=== PATIENT | male | born 1975 | race Caucasian/White ===

== ENCOUNTER → 2021-12-07 | Outpatient (CLI) | payer OTHER | LOC: M PLAIMG 10:37 | PROVIDERS: ATTEND Physician Assistant | DX: M47.25 Other spondylosis with radiculopathy, thoracolumbar region (principal) ==

== ENCOUNTER → 2022-03-29 | Outpatient (REF) | LOC: M PLAIMG 09:33 | PROVIDERS: ATTEND Internal Medicine | DX: R06.02 Shortness of breath (principal); M51.36 Other intervertebral disc degeneration, lumbar region; M46.96 Unspecified inflammatory spondylopathy, lumbar region; M50.323 Other cervical disc degeneration at C6-C7 level ==